=== PATIENT | male | born 1960 | race Two or more races ===

== ENCOUNTER 2023-10-01 12:32 | Emergency (ER) | payer OTHER ==
[~2023-10-01] VITALS: Ht 180.3 cm; Wt 84.8 kg
[2023-10-01 13:07] VITALS: BP 141/88; TEMP 97.9
[2023-10-01] MEDS ORDERED: ERYT3.5O9 EACHEYE (14:23)
[2023-10-01] MEDS ORDERED: LORA10TA68 PO (14:23)
[2023-10-01 14:35] VITALS: O2SAT 99
== END 2023-10-01 14:36 | disposition home or self-care (01) ==
LOC: ER 12:57
DX: H10.9 Unspecified conjunctivitis (principal); Z88.8 Allergy status to other drugs, medicaments and biological substances

== ENCOUNTER 2023-11-04 09:24 | Emergency (ER) | payer OTHER ==
[~2023-11-04] VITALS: Ht 180.3 cm; Wt 84.8 kg
[~2023-11-04 09:24] MED LIST: ERYT3.5O9 EACHEYE; LORA10TA68 PO
[2023-11-04] MEDS ORDERED: MORPHINE SULFATE INJ 4 MG/ML DISP.SYRIN ONE (09:44)
[2023-11-04] MEDS ORDERED: PSEUDOEPHEDRINE HCL 30 MG TABLET ONE (09:44)
[2023-11-04] MEDS: MORPHINE SULFATE INJ 2 MG/ML DISP.SYRIN IM ONE (09:49)
[2023-11-04] MEDS: PSEUDOEPHEDRINE HCL 30 MG TABLET PO ONE (09:50)
[2023-11-04] MEDS ORDERED: LIDOCAINE 1% INJ 50 ML MDV IJ ONE (10:25)
[2023-11-04 11:21] VITALS: BP 158/99; TEMP 98.1; O2SAT 96
== END 2023-11-04 11:22 | disposition home or self-care (01) ==
LOC: ER 09:35
DX: N48.39 Other priapism (principal); Z88.8 Allergy status to other drugs, medicaments and biological substances
CPT/HCPCS: 54220; 96372; 99284; A6403; J2270; J3490

== ENCOUNTER 2024-05-16 14:35 | Emergency (ER) | payer OTHER ==
[~2024-05-16] VITALS: Ht 180.3 cm; Wt 90.7 kg
[2024-05-16] MEDS ORDERED: ACETAMINOPHEN ES 500 MG TABLET ONE (16:42)
[2024-05-16] MEDS ORDERED: CEPHALEXIN MONOHYDRATE 500 MG CAPSULE PO ONE (16:42)
[2024-05-16] MEDS ORDERED: LIDOCAINE 1% INJ 50 ML MDV IJ ONE (16:42)
[2024-05-16] MEDS ORDERED: SULFAMETH/TRIMETH 800/160 MG 1 UDTAB TABLET ONE (16:43)
[2024-05-16] MEDS ORDERED: IBUPROFEN 600 MG TABLET ONE (16:43)
[2024-05-16] MEDS: ACETAMINOPHEN ES 500 MG TABLET PO ONE (16:52)
[2024-05-16] MEDS: IBUPROFEN 600 MG TABLET PO ONE (16:53)
[2024-05-16] MEDS: CEPHALEXIN MONOHYDRATE 500 MG CAPSULE PO ONE (16:54)
[2024-05-16] MEDS: LIDOCAINE HCL/PF 1% 30 ML VIAL TP ONE (16:55)
[2024-05-16] MEDS: SULFAMETH/TRIMETH 800/160 MG 1 UDTAB TABLET PO ONE (16:55)
[2024-05-16] MEDS ORDERED: SULF1TAB47 PO (18:24)
[2024-05-16] MEDS ORDERED: CEPH-570 PO (18:24)
[2024-05-16 18:39] VITALS: BP 132/69; TEMP 98.5; O2SAT 97
== END 2024-05-16 18:40 | disposition home or self-care (01) ==
LOC: ER 14:39
DX: L02.11 Cutaneous abscess of neck (principal); F17.200 Nicotine dependence, unspecified, uncomplicated; Z98.890 Other specified postprocedural states
CPT/HCPCS: J3490